=== PATIENT | male | born 1990 | race Caucasian/White ===

== ENCOUNTER 2021-10-25 20:46 | Emergency (ER) | payer BC, MEDICAID, OTHER ==
[~2021-10-25] VITALS: Ht 185.4 cm; Wt 80.0 kg
[~2021-10-25 20:46] MED LIST: BUPR1FIL3 SL; CLON-527 PO; ZOLP5TAB8 PO
[2021-10-25] MEDS ORDERED: NALO4SPR (21:02)
[2021-10-25 23:49] VITALS: BP 118/72
== END 2021-10-25 23:50 | disposition home or self-care (01) ==
LOC: ER 20:46
DX: T40.411A Poisoning by fentanyl or fentanyl analogs, accidental (unintentional), initial encounter (principal); F17.200 Nicotine dependence, unspecified, uncomplicated; F11.90 Opioid use, unspecified, uncomplicated; Z72.89 Other problems related to lifestyle; Z79.899 Other long term (current) drug therapy; Y92.89 Other specified places as the place of occurrence of the external cause
CPT/HCPCS: 93005; 99283

== ENCOUNTER 2021-12-02 18:59 | Emergency (ER) | payer MEDICAID ==
[~2021-12-02] VITALS: Ht 190.5 cm; Wt 86.4 kg
[~2021-12-02 18:59] MED LIST changes: -BUPR1FIL3 SL; -CLON-527 PO; +NALO4SPR; -ZOLP5TAB8 PO
[2021-12-02 19:53] VITALS: BP 125/75
[2021-12-02] MEDS ORDERED: NALO4SPR BOTHNARES (21:54)
== END 2021-12-02 22:13 | disposition home or self-care (01) ==
LOC: ER 19:00
DX: T40.411A Poisoning by fentanyl or fentanyl analogs, accidental (unintentional), initial encounter (principal); R11.2 Nausea with vomiting, unspecified; Y92.89 Other specified places as the place of occurrence of the external cause
CPT/HCPCS: 93005; 99283

== ENCOUNTER 2022-07-13 17:38 | Emergency (ER) | payer MEDICAID ==
[~2022-07-13] VITALS: Ht 190.5 cm; Wt 82.5 kg
[~2022-07-13 17:38] MED LIST changes: +NALO4SPR BOTHNARES
[2022-07-13 18:31] LABS: BASOPHILS % (AUTO) 0.5 % (0-1); EOSINOPHILS # (AUTO) 0.1 X10'3 (0-0.9); EOSINOPHILS % (AUTO) 1.9 % (0-6); HEMATOCRIT 37.6 % (42.0-52.0); HEMOGLOBIN 12.9 g/dl (14.0-17.9); LYMPHOCYTES # (AUTO) 2.5 X10'3 (1.1-4.8); LYMPHOCYTES % (AUTO) 40.4 % (21-51); MEAN CORPUSCULAR HEMOGLOBIN 30.8 PG (27.0-31.0); MEAN CORPUSCULAR HGB CONC 34.2 g/dL (33.0-36.5); MEAN CORPUSCULAR VOLUME 90.1 FL (78-98); MEAN PLATELET VOLUME 8.5 FL (7.4-10.4); MONOCYTES # (AUTO) 0.7 X10'3 (0-0.9); MONOCYTES % (AUTO) 11.2 % (2-12); NEUTROPHILS # (AUTO) 2.9 X10'3 (1.8-7.7); PLATELET COUNT 252 X10'3 (140-440); RED BLOOD COUNT 4.17 X10'6 (4.70-6.10); RED CELL DISTRIBUTION WIDTH 14.5 % (11.5-14.5); WHITE BLOOD COUNT 6.3 X10'3 (4.5-11.0)
[2022-07-13 18:40] LABS: CLARITY,URINE CLEAR (Clear); COLOR,URINE YELLOW (Yellow); GLUCOSE, URINE NEGATIVE (Neg); KETONES,URINE TRACE mg/dl (Neg); LEUKOCYTE ESTERASE ,URINE NEGATIVE (Neg); NITRITES, URINE NEGATIVE (Neg); OCCULT BLOOD,URINE NEGATIVE (Neg); PROTEIN,URINE NEGATIVE (Neg); UROBILINOGEN,URINE 0.2 E.U/dL (0.2-1.0)
[2022-07-13 18:44] LABS: UA COLLECTION TYPE CLN CATCH MIDSTREAM
[2022-07-13 18:51] LABS: URINE AMPHETAMINE SCREEN NEGATIVE (Neg); URINE BARBITUATE SCREEN NEGATIVE (Neg); URINE BENZODIAZEPINES SCREEN NEGATIVE (Neg); URINE CANNABINOID SCREEN NEGATIVE (Neg); URINE COCAINE SCREEN NEGATIVE (Neg); URINE METHADONE SCREEN POSITIVE (Neg); URINE OPIATE SCREEN NEGATIVE (Neg); URINE PHENCYCLIDINE SCREEN NEGATIVE (Neg)
[2022-07-13] MEDS ORDERED: METH-603 PO (18:54)
[2022-07-13 18:56] LABS: ALBUMIN 3.8 G/DL (3.4-5.0); ANION GAP 9 (8-16); BLOOD UREA NITROGEN 15 MG/DL (7-18); BUN/CREATININE RATIO 15.2 (5.4-32.0); CALCIUM 8.7 MG/DL (8.5-10.1); CHLORIDE 104 MMOL/L (99-107); CREATININE 0.99 MG/DL (0.60-1.10); GLUCOSE 88 MG/DL (70-104); POTASSIUM 4.1 MMOL/L (3.5-5.1); SODIUM 141 MMOL/L (135-145); TOTAL CARBON DIOXIDE 28.5 MMOL/L (24-32); eGFR 88 ML/MIN
--- NOTE | 2022-07-13 19:35 | NUR ---
PACKET SENT TO [facility]
--- NOTE | 2022-07-13 20:28 | NUR ---
The patient moved to bed 24 in the overflow. He is clean cut, well groomed and gives direct eye contact. He appears calm. He stated that he has been diagnoised schizophrenic and has had previous psychiatric hospitalizations. He reports that he has a history of methamphetamine abuse and last used a month ago. He also reports he is hearing constant auditory hallucinations which are derogatory in nature but do not tell him to harm himself. He stated his suicidal plan was to overdose on Fentanyl which he occassionally abuses. He has been seen in the ER twice in the past 12 months for accidental Fentanyl overdoses.
[2022-07-13 20:46] LABS: ETHANOL < 0.010 GM/DL (0.0-0.010)
--- NOTE | 2022-07-13 21:04 | NUR ---
The patient appears to be sleeping
[2022-07-13] MEDS ORDERED: methadone 10mg tablet PO SCH (21:48)
--- NOTE | 2022-07-13 22:58 | NUR ---
The patient awake briefly to use the bathroom
--- NOTE | 2022-07-14 01:12 | NUR ---
The patient appears to be sleeping
--- NOTE | 2022-07-14 02:47 | NUR ---
The patient appears to be sleeping
--- NOTE | 2022-07-14 04:08 | NUR ---
The patient appears to be sleeping
--- NOTE | 2022-07-14 05:28 | NUR ---
The patient appears to be sleeping
--- NOTE | 2022-07-14 07:52 | NUR ---
The patient appeared to sleep well during the night. He was awakened for am medication. He appears calm. He stated that he continues to hear the voices that "haven't changed in 10 years" He states they are both in his head and outside his head and added, "They chapito bounce around"
[2022-07-14] MEDS ORDERED: methadone 10mg tablet PO SCH (08:00)
--- NOTE | 2022-07-14 09:11 | NUR ---
The patient is resting on his bed after eating 90% of his breakfast.
--- NOTE | 2022-07-14 10:01 | NUR ---
[facility] assessed the patient.
[2022-07-14 11:09] VITALS: BP 101/63
== END 2022-07-14 11:13 | disposition home or self-care (01) ==
LOC: ER 19:59
DX: R45.851 Suicidal ideations (principal); Z20.822 Contact with and (suspected) exposure to COVID-19; F33.2 Major depressive disorder, recurrent severe without psychotic features; B18.2 Chronic viral hepatitis C
CPT/HCPCS: 36415; 80048; 80305; 80320; 81003; 84443; 85025; 87811; 99285

== ENCOUNTER 2025-07-30 09:46 | Emergency (ER) | payer MEDICAID ==
[~2025-07-30] VITALS: Ht 190.5 cm; Wt 74.5 kg
[~2025-07-30 09:46] MED LIST changes: +DESV50TA10 PO; +IBUP600T52 PO; +LAMO100T PO; +METH-603 PO; -NALO4SPR; -NALO4SPR BOTHNARES
[2025-07-30 10:22] VITALS: BP 117/79; PULSE 94; RESP 16; TEMP 97.2; O2SAT 98
[2025-07-30] MEDS ORDERED: IBUP-1986 PO (11:09)
[2025-07-30] MEDS ORDERED: HYDR-3965 PO (11:09)
--- NOTE | 2025-07-30 11:09 | Physician Documentation ---
History of Present Illness ~ Chief Complaint: See Chief Complaint Stated Complaint: LIP SWELLING Time Seen by MD: 10:52 OK to notify your PCP?: Yes Primary Medical Doctor: Princess Christiansen MD Source: patient Mode of Arrival: POV Exam Limitations: no limitations HPI 35-year-old male with chief complaint swelling and pain in his lower lip which started after he squeezed a pimple a few days ago. He states he has been on Bactrim now for 24 hours which she got prescribed by the clinic. He also got a shot of Toradol which he states was very helpful and for 4 hours after he got the Toradol he reports the swelling and pain was significantly better but then started to improve. He has been taking [id number]-rcewgln Motrin 400 mg every 4-6 hours along with Tylenol 1000 mg 3 times a day. He denies fever, chills, dental pain, headaches, difficulty or painful swallowing, cp, sob. Medication Reconciliation Allergies: Coded Allergies: No Known Allergies (Unverified , 07/13/22) Scheduled Desvenlafaxine (Desvenlafaxine ER), 25 MG PO HS, (Reported) Lamotrigine (LaMICtal tablet), 1 TAB PO HS, (Reported) Methadone Hcl* (Dolophine*), 68 MG PO DAILY, (Reported) Scheduled PRN Ibuprofen (Ibuprofen), 1 TAB PO Q8H PRN for pain Past Medical History Past Medical History: Hepatitis C Past Surgical History: no surgical history Alcohol Use: Occasionally Drug Use: other Lives In: Home Review of Systems All Other Systems at this time: Reviewed and Negative Physical Exam Vital Signs: Temperature: 97.2, Source: Temporal, Heart Rate: 94, Respiratory Rate: 16, BP: 117/79, Pulse Oximetry: 98, Weight: 74.500 Physical Exam General Appearance: Alert, WD/WN. NAD. HEENT: NCAT, PERRL, EOMI. Lower lip edematous with small pustule just below the mid lower lip below the vermilion border no active draining areas indurated but no fluctuance areas tender to palpation. Gingiva on the inside of the lower lip is normal. Neck: Supple, trachea midline. No cervical lymphadenopathy. Cardiovascular: RRR. No m/r/g. Lungs: CTAB. Breathing unlabored Extremities: Normal inspection. No edema. Skin: Warm/dry, normal color Neurological: Alert and oriented x4, normal gait. Psychiatric: Affect congruent with mood. Progress Results/Orders Results/Orders Vital Signs 07/30/25 10:22 Temp 97.2 Pulse 94 Resp 16 B/P (MAP) 117/79 Pulse Ox 98 Medical Decision Making Additional Comment ddx: herpes, abscess, cellulitis, referred from dental infection, allergic reaction Departure Time of Disposition: 11:07 Disposition: 01 HOME / SELF CARE / HOMELESS Impression: Primary Impression: Infection of lip Condition: Stable Discharge Instructions: General Discharge Instructions Additional Instructions: continue bactrim as prescribed i sent rx for norco and motrin if fever, increasing pain and swelling return to ER Referrals: NO PRIMARY CARE PROVIDER (PCP) Prescriptions Hydrocodone Bit/Acetaminophen 5/325 MG ([place] 5/325 MG) 5 Mg/325 Mg Tablet 1 TAB PO Q6H PRN for pain, #14 TAB dx: lip abscess K12.2 Prov: JONI SCHWAB 07/30/25 Ibuprofen (Ibuprofen) 800 Mg Tablet 1 TAB PO Q8H for pain for 10 Days, #30 TAB 0 Refills Prov: JONI SCHWAB 07/30/25 Education Educated: Patient Educated regarding: diagnosis, treatment, need for follow up Signature Scribe Signature: x Attestation: JONI Amado Jul 30, 2025 11:09
== END 2025-07-30 11:25 | disposition home or self-care (01) ==
LOC: ER 09:47
DX: R22.0 Localized swelling, mass and lump, head (principal)
CPT/HCPCS: 99283